=== PATIENT | female | born 1990 | race African-American/Black ===

== ENCOUNTER 2019-02-16 20:12 | Emergency (ER) | payer OTHER ==
[~2019-02-16] VITALS: Ht 167.6 cm; Wt 77.1 kg
[2019-02-16 20:25] VITALS: BP 109/68
--- NOTE | 2019-02-16 20:25 | NUR ---
ED Nurse Note: Patient walked in to ED c/o left flank pain radiating to lower abdomen x3 days. No n/v/d. Denies pain while urinating. As per patient, she noticed blood in her urine x3 days ago. Afebrile. No SOB. VSS.
--- NOTE | 2019-02-16 20:34 | NUR ---
ED Nurse Note: ALHAJI ta bedside.
[2019-02-16] MEDS ORDERED: Ketorolac 30mg Inj IV ONE (20:45)
[2019-02-16 20:58] LABS: EOSINOPHILS % (AUTO) 0.3 % (0.0-3.0); HEMATOCRIT 39.1 % (37.0-47.0); HEMOGLOBIN 13.1 G/DL (12.0-16.0); LYMPHOCYTES % (AUTO) 17.4 % (20.0-45.0); MEAN CORPUSCULAR VOLUME 88 FL (80-99); MONOCYTES % (AUTO) 10.8 % (1.0-10.0); NEUTROPHILS % (AUTO) 70.5 % (45.0-75.0); PLATELET COUNT 241 K/UL (150-450); RED BLOOD COUNT 4.42 M/UL (4.20-5.40); WHITE BLOOD COUNT 12.2 K/UL (4.8-10.8)
[2019-02-16 21:04] LABS: APPEARANCE,URINE CLEAR; BILIRUBIN, URINE NEGATIVE (NEGATIVE); COLOR,URINE YELLOW; GLUCOSE, URINE (UA) NEGATIVE (NEGATIVE); KETONES,URINE NEGATIVE (NEGATIVE); LEUKOCYTE ESTERASE ,URINE 3+ (NEGATIVE); NITRITE,URINE NEGATIVE (NEGATIVE); PH,URINE 6 (4.5-8.0); PROTEIN,URINE 2+ (NEGATIVE); UROBILINOGEN,URINE NORMAL MG/DL (0.0-1.0)
[2019-02-16] MEDS ORDERED: cefTRIAXone 1 GM in NS 55 ML IVPB ONE (21:15)
[2019-02-16 21:21] LABS: ANION GAP 9 mmol/L (5-15); BLOOD UREA NITROGEN 8 mg/dL (7-18); CALCIUM 9.1 MG/DL (8.5-10.1); CARBON DIOXIDE 25 MMOL/L (21-32); CHLORIDE 103 MMOL/L (98-107); POTASSIUM 4.1 MMOL/L (3.5-5.1); SODIUM 137 MMOL/L (136-145)
[2019-02-16 21:26] LABS: ALANINE AMINOTRANSFERASE 19 U/L (12-78); ALBUMIN 3.7 G/DL (3.4-5.0); ALBUMIN/GLOBULIN RATIO 0.8 (1.0-2.7); ALKALINE PHOSPHATASE 58 U/L (46-116); ASPARTATE AMINO TRANSFERASE 19 U/L (15-37); BILIRUBIN,TOTAL 0.5 MG/DL (0.2-1.0)
--- NOTE | 2019-02-16 21:30 | Emergency Room Report ---
History of Present Illness General Chief Complaint: Abdominal Pain Source: Patient Present Illness HPI 28-year-old female with no significant past medical history here complaining of 3 days of urinary frequency, urgency, dysuria, and left-sided flank pain radiating to the front. Denies hematuria, fever and chills at this time. Complains of feeling nauseated however denies vomiting, diarrhea or constipation. Has not taken medication for symptom relief. Denies any history of renal infection or stone. Patient is mildly tender to palpation in the left flank and epigastric. Denies cough and congestion, and all other URI symptoms. Reports her last menstrual period was 1 month ago and regular. Denies vaginal discharge or pruritus. Allergies: Uncoded Allergies: SULFA ANTIBIOTIC (Allergy, Unknown, 02/16/19) Patient History Past Medical History: none Past Surgical History: unable to obtain Pertinent Family History: none Social History: Reports: drug use - marijuana Last Menstrual Period: 01/17/19 Now: No : 2 Para: 0 Immunizations: UTD Reviewed Nursing Documentation: PMH: Agreed; PSxH: Agreed Nursing Documentation-PMH Past Medical History: No Stated History Hx Cardiac Problems: No Hx Hypertension: No Hx Pacemaker: No Hx Asthma: No Hx COPD: No Hx Diabetes: No Hx Cancer: No Hx Gastrointestinal Problems: No Hx Dialysis: No History Of Psychiatric Problem: No Hx Neurological Problems: No Hx Cerebrovascular Accident: No Hx Seizures: No Review of Systems All Other Systems: negative except mentioned in HPI Physical Exam Vital Signs Date Time Temp Pulse Resp B/P (MAP) Pulse Ox O2 Delivery O2 Flow Rate FiO2 02/16/19 20:16 99.1 91 19 109/68 (82) 97 Room Air Sp02 EP Interpretation: reviewed, normal General Appearance: no apparent distress, alert, GCS 15, non-toxic Head: normocephalic, atraumatic Eyes: bilateral eye normal inspection, bilateral eye PERRL ENT: hearing grossly normal, normal pharynx, no angioedema, normal voice Neck: full range of motion, supple/symm/no masses Respiratory: chest non-tender, lungs clear, normal breath sounds, no wheezing, speaking full sentences Cardiovascular #1: regular rate, rhythm, no edema, no murmur, normal capillary refill Gastrointestinal: non tender, soft, no mass, no organomegaly, no peritonitis, no bruit, non-distended, no guarding, no hernia, no pulsatile mass, no rebound Rectal: deferred Genitourinary: no CVA tenderness - Left flank is mildly tender however not criteria for complete CVA tenderness as patient does not jump and only complains of discomfort when left flank is palpated Musculoskeletal: back normal, no calf tenderness Neurologic: alert, motor strength/tone normal, oriented x3, sensory intact, responsive, speech normal Psychiatric: judgement/insight normal, memory normal, mood/affect normal, no suicidal/homicidal ideation Skin: no rash Lymphatic: no adenopathy Medical Decision Making PA Attestation All my diagnosis and treatment plans were reviewed ad discussed with my supervising physician Dr. Whitley Diagnostic Impression: Primary Impression: UTI (urinary tract infection) Additional Impression: Flank pain, acute ER Course 28-year-old female with no significant past medical history here complaining of 3 days of urinary frequency, urgency, dysuria, and left-sided flank pain radiating to the front. Denies hematuria, fever and chills at this time. Complains of feeling nauseated however denies vomiting, diarrhea or constipation. Has not taken medication for symptom relief. Denies any history of renal infection or stone. Patient is mildly tender to palpation in the left flank and epigastric. Denies cough and congestion, and all other URI symptoms. Reports her last menstrual period was 1 month ago and regular. Denies vaginal discharge or pruritus. Ddx considered but are not limited to: UTI, pyelonephritis, urinary incontinence , prolapsed bladder Vital signs: are WNL, pt. is afebrile H&PE are most consistent with: Uncomplicated UTI, acute flank pain ORDERS: UA, urine cx, CBC, CMP, lipase, Keflex, Pyridium, Zofran ED INTERVENTIONS: NS bolus, Rocephin, Zofran, Toradol DISCHARGE: At this time pt. is stable for d/c to home. Will provide printed patient care instructions, and any necessary prescriptions. Care plan and follow up instructions have been discussed with the patient prior to discharge. Patient to be treated as outpatient, possible asymptomatic pyelonephritis. Patient was given an injection of a gram of Rocephin in the emergency room today and discharged with Keflex. Patient to follow with primary care provider. Patient afebrile upon arrival and afebrile when leaving emergency department. If worsening symptoms, fever, multiple bouts of nausea and vomiting return to the emergency room. At this time no imaging was necessary as patient was treated symptomatically. Last Vital Signs Date Time Temp Pulse Resp B/P (MAP) Pulse Ox O2 Delivery O2 Flow Rate FiO2 02/16/19 20:25 99.1 91 19 109/68 97 Room Air Disposition: HOME, SELF-CARE Condition: Stable Scripts Phenazopyridine Hcl* (PYRIDIUM*) 200 Mg Tablet 200 MG ORAL THREE TIMES A DAY for 2 Days, #6 TAB 0 Refills Prov: Shiraz Back 02/16/19 Ondansetron (Zofran) 4 Mg Tablet 4 MG ORAL Q6H PRN for Nausea & Vomiting, #14 TAB Prov: Shiraz Back 02/16/19 Cephalexin* (KEFLEX*) 500 Mg Capsule 500 MG ORAL EVERY 6 HOURS for 7 Days, #28 CAP Prov: Shiraz Back 02/16/19 Referrals: NON PHYSICIAN (PCP) Patient Instructions: Abdominal Pain, Adult, Urinary Tract Infection, Easy-to- Read Additional Instructions: Take medication as directed, follow with primary care provider, continues to be symptomatic CT scan of abdomen and kidneys may be needed. At this time you are asymptomatic, no fever and chills noted, to be treated as if you have the beginning stages of a kidney infection. However if end up having elevated temperature, and multiple bouts of emesis return to the emergency room. Shiraz Back Feb 16, 2019 21:30
[2019-02-16] MEDS ORDERED: ZOFRAN4 M1 ORAL (21:31)
[2019-02-16] MEDS ORDERED: CEPHALEXIN500 MG ORAL (21:31)
[2019-02-16] MEDS ORDERED: PHENAZOPYRIDIN200 MG ORAL (21:31)
[2019-02-16 22:02] VITALS: BP 109/68
--- NOTE | 2019-02-16 22:02 | NUR ---
ED Nurse Note: Pt cleared by ERMD for discharge. DC instructions/prescription was given and explained to pt and verbalized understanding of teachings. All medical deviecs such as ID band and IV line removed. Pt is AAO x4, ambulatory and left with all personal belongings.
== END 2019-02-16 22:02 | disposition home or self-care (01) ==
LOC: EMR 20:49
DX: N39.0 Urinary tract infection, site not specified (principal); R10.9 Unspecified abdominal pain; Z88.2 Allergy status to sulfonamides
CPT/HCPCS: 36415; 80053; 81003; 81025; 83690; 85025; 87086; 96365; 96375; 99284; J0696; J1885; J2405